=== PATIENT | male | born 2000 | race Asian ===

== ENCOUNTER 2023-07-22 15:52 | Emergency (ER) | payer SELFPAY ==
--- NOTE | 2023-07-22 15:58 | ED.RN ---
Pt needs to be somewhere at 5 pm and unable to stay to be seen. States he'll return tomorrow.
== END 2023-07-22 15:55 | disposition left against medical advice (07) ==
LOC: ED 16:05
DX: R07.9 Chest pain, unspecified (principal)

== ENCOUNTER 2023-07-30 14:43 | Emergency (ER) | payer OTHER, SELFPAY ==
[2023-07-30 14:44] VITALS: BP 127/79; PULSE 89; RESP 16; TEMP 35.5; O2SAT 98; BMI 27.9
--- NOTE | 2023-07-30 14:58 | EX.ED.GENINJ ---
HPI History of Present Illness Chief Complaint: Chest Other Informant: patient Onset/Context/Timing Onset: Month(s) (1) Mechanism/Context: Fall Quality of Pain: Aching Location: Left upper chest Worsened by: Coughing, laughing, movement Relieved by: Nothing Associated Symptoms Associated Symptoms: Negative for Parasthesias, Weakness, Loss of function, Inability to ambulate, Loss of consciousness or Amnesia Narrative Narrative: Patient presents with left upper chest pain that began after a fall 1 month ago. Patient states he was snowboarding and fell with his left arm onto his chest. Patient states the pain has been persistent for the past month. Patient describes it as aching. Patient states it is worse with coughing and laughing. Patient denies any paresthesias or weakness. Patient denies any head injury or loss of consciousness. Patient denies any other injuries. PFSH PFSH Medical History no medical history no medical history Allergy/AdvReac Type Severity Reaction Status Date / Time No Known Allergies Allergy Verified 07/22/23 15:54 Surgical History (Updated 07/30/23 @ 15:[address] Parth Ha, ) S/P right inguinal herniorrhaphy ROS ROS ED Constitutional Constitutional ED: Denies chills or fever(s) Eyes Eyes: Denies blurry vision or change in vision ENT ENT ED: Denies rhinorrhea or sore throat Cardiovascular Cardiovascular: Reports chest pain; Denies palpitations Respiratory/Chest Respiratory/Chest: Reports dyspnea; Denies cough Gastrointestinal Gastrointestinal: Denies nausea or vomiting Genitourinary Genitourinary ED: Denies dysuria or hematuria Musculoskeletal Musculoskeletal: Denies back pain or neck pain Integumentary Denies abscess or rash Neurologic Neurologic: Denies headache(s) or weakness Allergic/Immunologic Allergic/Immunologic ED: Denies mouth swelling or urticaria EXAM Physical Exam Const Vital Signs: 07/30/23 14:44 Temperature 95.9 F L Temperature Source Temporal Pulse Rate 89 Respiratory Rate 16 Blood Pressure 127/79 H Blood Pressure Mean 95 Pulse Ox 98 Oxygen Delivery Method Room Air Positive well nourished and well developed General Appearance ED: well developed and NAD HEENT atraumatic; Negative for tenderness Neck full ROM Chest Wall Chest Narrative: There is tenderness over the left upper chest wall. There is no bony crepitance or step-off noted. There is no subcutaneous emphysema noted. Resp normal respiratory effort and clear to auscultation bilaterally Cardio regular rhythm Rate: regular rate GI non-tender and non-distended Palpation: soft Neuro oriented x3, CN's II-XII intact bilaterally, moves all extremities, no focal motor deficits and no sensory deficits noted Sachin Coma Scale: document GCS findings Spontaneous Obeys Commands Oriented 15 Sensorium / Orientation: alert Motor Exam: strength 5/5 throughout Psych mental status grossly normal and thought process normal MDM MDM MDM Narrative Medical decision making narrative: Differential diagnosis includes pneumothorax, rib fracture, and chest wall contusion. X-rays of the left ribs and chest will be obtained to assess for rib fracture and pneumothorax. Radiography Diagnostic Testing: Clinical Impression(s) from Imaging Studies Ribs w/Chest X-Ray 07/30/23 15:10 IMPRESSION: RIBS: Normal x-ray examination of the ribs. CHEST: Normal x-ray examination of the chest. Electronically Signed: Audie Hooks MD at 15:25 EST , X-rays of the left ribs were obtained. There are 5 views. On my independent interpretation, there is no acute fracture. There is no pneumothorax. There is no acute cardiopulmonary process noted. Radiologist also interpreted the x-rays and agrees. Treatment and Re-Evaluation Narrative: Patient was advised of his findings. Patient was instructed to use ice to the area. Patient was instructed to take Tylenol and ibuprofen as needed for pain. Patient was instructed to follow-up with his primary care physician in 5 to 7 days. Patient understood and was agreeable with the plan. All questions were answered. Discharge Plan Triage Chief Complaint: Chest Other ED Provider: Parth Ha Dx/Rx/DC Orders Clinical Impression: Chest wall contusion, Fall Instructions: ED Chest Wall Contusion Primary Care Provider: Care Physician,No Primary Referrals: Care Physician,No Primary [Primary Care Provider] - Disposition Disposition: Home, Self Care
--- NOTE | 2023-07-30 15:10 | RAD_ITS ---
STUDY: X-RAY - UNILATERAL RIBS ( LEFT ) WITH CHEST REASON FOR EXAM: Male, 22 years old. Fall TECHNIQUE - RIBS: 4 view(s) of the ribs. TECHNIQUE - CHEST: COMPARISON: None. FINDINGS - RIBS: Normal visualized ribs without a demonstrated fracture. FINDINGS - CHEST: The lungs are clear and expanded. There is no demonstrated pleural abnormality. Normal size heart. Normal mediastinum and srinivasa. Normal visualized pulmonary arteries. Normal visualized aortic arch and descending thoracic aorta. Normal visualized thoracic spine. Normal visualized ribs, clavicles, and shoulders. There is no demonstrated abnormality of the visualized soft tissue structures of the upper abdomen. RAD/Ribs Uni Min 3V w/PA Chest IMPRESSION: RIBS: Normal x-ray examination of the ribs. CHEST: Normal x-ray examination of the chest. Electronically Signed: Audie Hooks MD at 15:25 EST ,
[2023-07-30 16:13] VITALS: BP 108/67; PULSE 82; RESP 16; O2SAT 100
== END 2023-07-30 16:13 | disposition home or self-care (01) ==
PROVIDERS: Emergency Provider Emergency Medicine; Visit Provider Emergency Medicine
DX: S20.20XA Contusion of thorax, unspecified, initial encounter (principal); W19.XXXA Unspecified fall, initial encounter; Y93.23 Activity, snow (alpine) (downhill) skiing, snowboarding, sledding, tobogganing and snow tubing
CPT/HCPCS: 71101; 99282

== ENCOUNTER 2024-04-20 19:35 | Emergency (ER) | payer OTHER, SELFPAY ==
[2024-04-20 19:36] VITALS: BP 141/74; PULSE 97; RESP 18; TEMP 36.5; O2SAT 97; BMI 29.0
--- NOTE | 2024-04-20 20:39 | EX.ED.DYSGE1 ---
HPI History of Present Illness Chief Complaint: Dental Narrative Narrative: 23-year-old male who denies any significant past medical history presents with left-sided jaw pain with possible swelling that he noticed tonight when he was eating dinner. He states he was eating a sandwich and developed pain in his left jaw. No fevers or chills, no nausea or vomiting, no difficulty swallowing, no recent dry mouth. He presents for evaluation of his left-sided jaw pain, its only on that side, and he denies any other symptoms, no right-sided jaw pain. PFSH PFSH Allergy/AdvReac Type Severity Reaction Status Date / Time No Known Allergies Allergy Verified 04/20/24 19:36 Surgical History S/P right inguinal herniorrhaphy Social History Smoking Status: Never smoker ROS ROS ED ROS Narrative Focused review of system positive for left-sided jaw pain, somewhat worse with movement. Mild difficulty opening mouth. No fevers or chills, no nausea or vomiting, no other symptoms. EXAM Physical Exam Narrative Exam Narrative: Afebrile. Vital signs noted. Regular rate and rhythm. Lungs clear to auscultation bilaterally. Abdomen is soft nontender with normoactive bowel sounds. HEENT examination does not reveal any obvious swelling of the left jaw. There is mild tenderness over the parotid gland but no erythema, also mild tenderness over left TMJ area. No noted crepitance. Able to open and close mouth. No clinical dislocation, no trismus. Const Vital Signs: 04/20/24 19:36 Temperature 97.7 F L Temperature Source Oral Pulse Rate 97 Respiratory Rate 18 Blood Pressure 141/74 H Blood Pressure Mean 96 Pulse Ox 97 Oxygen Delivery Method Room Air MDM MDM MDM Narrative Medical decision making narrative: Differential diagnosis includes but not limited to TMJ syndrome/inflammation versus parotitis versus parotid duct stone versus dental abscess. History and physical does not favor dental abscess as he does not have carious teeth. I do not feel that he has a clinical dislocation of his jaw and I do not feel that imaging is indicated. He does not have dry mouth so I do not think he has a parotid duct stone. There is no overt swelling or erythema over the parotid gland. He will take [id number] medications and he will follow-up with otolaryngology as needed. We did discuss the possibility of TMJ inflammation versus infectious parotitis. I do not feel antibiotics are indicated. Return instructions to the emergency department were reviewed. Patient is agreeable to the plan. Disposition is discharged home in stable condition. History & Record Review Discussion w/independent historian: Patient Discharge Plan Triage Chief Complaint: Dental ED Provider: Emerson Mendosa Dx/Rx/DC Orders Clinical Impression: TMJ inflammation, Swelling of left parotid gland, Jaw pain Instructions: ED Pain, Acute, Uncertain Cause, ED Salivary Gland Swelling UKO, ED TMJ Syndrome Primary Care Provider: Care Physician,No Primary Referrals: Ed Montanez MD [Med Staff - Active Staff] - 1 Week if not improving Care Physician,No Primary [Primary Care Provider] - Activity Restrictions/Additional Instructions: Return with fever, increased swelling of the left jaw area, new or worsening symptoms. Take Tylenol or ibuprofen as needed for pain. Follow-up with ENT. Print Language: Estonian Disposition Disposition: Home, Self Care
[2024-04-20 21:02] VITALS: BP 128/78; PULSE 97; RESP 18; TEMP 36.5; O2SAT 97
== END 2024-04-20 21:05 | disposition home or self-care (01) ==
LOC: ED 20:43
PROVIDERS: Emergency Provider Emergency Medicine; Referring Provider Emergency Medicine; Visit Provider Emergency Medicine
DX: M26.69 Other specified disorders of temporomandibular joint (principal); K11.8 Other diseases of salivary glands; R68.84 Jaw pain
CPT/HCPCS: 99282